=== PATIENT | male | born 1940 | race Caucasian/White ===

== ENCOUNTER 2016-11-28 09:06 | Day surgery (SDC) | payer OTHER ==
[2016-11-28] MEDS ORDERED: D5 LR 1000 ML 1,000 ML IV ONE (09:25)
[2016-11-28] MEDS ORDERED: DIPRIVAN VIAL 20 ML ONE (10:35)
[2016-11-28] MEDS ORDERED: DIPRIVAN VIAL 10 ML ONE (10:53)
[2016-11-28 12:11] VITALS: BP 147/80
== END 2016-11-28 11:30 | disposition home or self-care (01) ==
LOC: SURG1 09:06
PROVIDERS: ATTEND Internal Medicine Gastroenterology
PROC: 0DBP8ZX Excision of Rectum, Via Natural or Artificial Opening Endoscopic, Diagnostic (ICD-10-PCS; principal; 2016-11-28 13:00)
PROC: 0DBL8ZX Excision of Transverse Colon, Via Natural or Artificial Opening Endoscopic, Diagnostic (ICD-10-PCS; principal; 2016-11-28 13:00)
PROC: 0DBH8ZX Excision of Cecum, Via Natural or Artificial Opening Endoscopic, Diagnostic (ICD-10-PCS; principal; 2016-11-28 13:00)
PROC: 0DJD8ZZ Inspection of Lower Intestinal Tract, Via Natural or Artificial Opening Endoscopic (ICD-10-PCS; principal; 2016-11-28 13:00)
PROC: 0DBN8ZX Excision of Sigmoid Colon, Via Natural or Artificial Opening Endoscopic, Diagnostic (ICD-10-PCS; principal; 2016-11-28 13:00)
DX: Z12.11 Encounter for screening for malignant neoplasm of colon (principal); K63.5 Polyp of colon; K57.30 Diverticulosis of large intestine without perforation or abscess without bleeding
CPT/HCPCS: 99100; A4217; J3490; J7120

== ENCOUNTER 2017-07-03 06:57 | Day surgery (SDC) | payer OTHER ==
[2017-07-03] MEDS ORDERED: D5 LR 1000 ML 1,000 ML IV ONE (07:14)
[2017-07-03] MEDS ORDERED: DIPRIVAN VIAL 20 ML ONE (08:34)
[2017-07-03 09:11] VITALS: BP 127/73
== END 2017-07-03 09:10 | disposition home or self-care (01) ==
LOC: SURG1 06:57
PROVIDERS: ATTEND Internal Medicine Gastroenterology
PROC: 0DJD8ZZ Inspection of Lower Intestinal Tract, Via Natural or Artificial Opening Endoscopic (ICD-10-PCS; principal; 2017-07-03 08:15)
PROC: 0DBN8ZX Excision of Sigmoid Colon, Via Natural or Artificial Opening Endoscopic, Diagnostic (ICD-10-PCS; principal; 2017-07-03 08:15)
PROC: 0DBP8ZX Excision of Rectum, Via Natural or Artificial Opening Endoscopic, Diagnostic (ICD-10-PCS; principal; 2017-07-03 08:15)
PROC: 0D757ZZ Dilation of Esophagus, Via Natural or Artificial Opening (ICD-10-PCS; principal; 2017-07-03 08:15)
DX: Z12.11 Encounter for screening for malignant neoplasm of colon (principal); K63.5 Polyp of colon; K64.0 First degree hemorrhoids; Z86.010 Personal history of colon polyps
CPT/HCPCS: 99100; A4217; J3490; J7120